=== PATIENT | male | born 2000 | race American Indian/Alaskan Native ===

== ENCOUNTER 2018-04-21 07:02 | Emergency (ER) | payer SELFPAY ==
[2018-04-21 07:21] VITALS: BMI 25.7
--- NOTE | 2018-04-21 07:24 | ED PDOC ---
HPI: Skin/Bite Injury Time Seen by Provider: 04/21/18 07:09 Chief Complaint (Provider): Allergic reaction History Per: Patient History/Exam Limitations: no limitations Onset/Duration Of Symptoms: Days (1 week) Current Symptoms Are (Timing): Still Present Additional Complaint(s): Pt. with hives and itching in different areas. It starts in 1 area and goes away after 1 hr. Then some other time starts in a different area and goes away. Took benadryl 2 days ago as it was on his face. It can occur any where on the body, extremities and face. Has no dyspnea, cough, trouble swallowing, weakness, dizziness. No facial swelling. Denies any new food, drinks, or new exposure. Past Medical History Reviewed: Nursing Documentation, Vital Signs - Medical History PMH: Atrial Fibrillation - Surgical History Surgical History: No Surg Hx - Family History Family History: States: Unknown Family Hx - Home Medications Home Medications: Ambulatory Orders Medication Instructions Recorded DiphenhydrAMINE [Benadryl] 25 mg PO TID PRN 5 Days cap 04/21/18 predniSONE [predniSONE Tab] 20 mg PO BID 5 Days tab 04/21/18 - Allergies Allergies/Adverse Reactions: Allergies Allergy/AdvReac Type Severity Reaction Status Date / Time Bleach (Sodium Hypochlorite) Allergy RASH Verified 04/21/18 07:22 Review of Systems ROS Statement: Except As Marked, All Systems Reviewed And Found Negative Skin: Positive for: Rash Physical Exam - Reviewed Nursing Documentation Reviewed: Yes Vital Signs Reviewed: Yes - Physical Exam Appears: Positive for: Non-toxic, No Acute Distress Head Exam: Positive for: ATRAUMATIC, NORMAL INSPECTION, NORMOCEPHALIC Skin: Positive for: Rash (b/l upper lateral back with blanching erythema in urticarial pattern; no fluctuance, induration, or tenderness) Eye Exam: Positive for: EOMI, Normal appearance, PERRL ENT: Positive for: Normal ENT Inspection Neck: Positive for: Normal, Painless ROM Cardiovascular/Chest: Positive for: Regular Rate, Rhythm. Negative for: Edema Respiratory: Positive for: CNT, Normal Breath Sounds Gastrointestinal/Abdominal: Positive for: Normal Exam, Soft. Negative for: Tenderness Back: Positive for: Normal Inspection. Negative for: L CVA Tenderness, R CVA Tenderness Extremity: Positive for: Normal ROM. Negative for: Tenderness, Pedal Edema Neurologic/Psych: Positive for: Alert, Oriented - Progress ED Course And Treament: 725: Pt. has had similar in the past when exposed to bleach. States no exposure to it. AAOx3. Pain free. Tolerated po. Disposition - Clinical Impression Clinical Impression: Hives - Patient ED Disposition Is Patient to be Admitted: No - Disposition Referrals: [facility] [Outside] - 04/22/18 Disposition: Routine/Home Disposition Time: 07:28 Condition: STABLE Additional Instructions: Return if not better in 3 days. Prescriptions: DiphenhydrAMINE [Benadryl] 25 mg PO TID PRN 5 Days cap PRN Reason: Itching / Pruritus predniSONE [predniSONE Tab] 20 mg PO BID 5 Days tab Instructions: Hives Forms: [facility] ED School/Work Excuse
[2018-04-21 07:26] VITALS: BP 116/60; PULSE 88; RESP 18; TEMP 98.4; O2SAT 98
== END 2018-04-21 08:08 | disposition home or self-care (01) ==
LOC: H.ER 07:02
DX: L50.9 Urticaria, unspecified (principal)

== ENCOUNTER 2018-04-22 20:58 | Emergency (ER) | payer OTHER ==
[2018-04-22 20:59] VITALS: BMI 25.7
[2018-04-22 21:06] VITALS: BP 124/65; PULSE 103; RESP 18; TEMP 98; O2SAT 100
--- NOTE | 2018-04-22 21:30 | ED PDOC ---
HPI: General Adult Time Seen by Provider: 04/22/18 21:08 Chief Complaint (Nursing): Body Fluid Exposure Chief Complaint (Provider): Saliva Exposure History Per: Patient History/Exam Limitations: no limitations Onset/Duration Of Symptoms: Mins (prior to arrival) Additional Complaint(s): 17 year old male presents to the ED for evaluation of saliva exposure. 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 Denies the saliva containing any blood. He reports that his employer required him to be evaluated for exposure, but has no complaints at present. Otherwise, (-) visual changes, (-) fever, (-) foreign body sensation. PMD: Norberto Guevara MD Past Medical History Reviewed: Historical Data, Nursing Documentation, Vital Signs Vital Signs: Last Vital Signs Temp 98.0 F 04/22/18 21:04 Pulse 103 H 04/22/18 21:04 Resp 18 04/22/18 21:04 BP 124/65 04/22/18 21:04 Pulse Ox 100 04/22/18 21:37 - Medical History PMH: Anemia (g6pd deficiency ), Atrial Fibrillation - Surgical History Surgical History: No Surg Hx - Family History Family History: States: Unknown Family Hx - Social History Current smoker - smoking cessation education provided: No Alcohol: None Drugs: Denies - Home Medications Home Medications: Ambulatory Orders Medication Instructions Recorded DiphenhydrAMINE [Benadryl] 25 mg PO TID PRN 5 Days cap 04/21/18 predniSONE [predniSONE Tab] 20 mg PO BID 5 Days tab 04/21/18 - Allergies Allergies/Adverse Reactions: Allergies Allergy/AdvReac Type Severity Reaction Status Date / Time Bleach (Sodium Hypochlorite) Allergy RASH Verified 04/22/18 21:03 Review of Systems ROS Statement: Except As Marked, All Systems Reviewed And Found Negative Constitutional: Negative for: Fever Eyes: Positive for: Other (saliva exposure to right eye; denies foriegn body sensation). Negative for: Vision Change Physical Exam - Reviewed Nursing Documentation Reviewed: Yes Vital Signs Reviewed: Yes - Physical Exam Comments: GENERAL APPEARANCE: Patient is awake, alert, oriented x 3, in no acute distress. Resting comfortably. SKIN: Warm, dry; (-) cyanosis. EYES: (-) conjunctival pallor or injection, (-) scleral icterus, (-) nystagmus ( -) periorbital tenderness or swelling (-) hyphema (-) chemosis (-) FB visualized ENMT: Mucous membranes moist. Airway patent: (-) stridor. NECK: Supple, FROM (-) tenderness, (-) stiffness, (-) lymphadenopathy. CHEST AND RESPIRATORY: (-) rhonchi, (-) rales, (-) wheezes, (-) pleural rub; breath sounds equal bilaterally. HEART AND CARDIOVASCULAR: (-) irregularity; (-) murmur, (-) gallop. NEURO AND PSYCH: Mental status as above. Cranial nerves grossly intact; strength symmetric. EOMI and painless. - ECG O2 Sat by Pulse Oximetry: 100 (RA) Pulse Ox Interpretation: Normal Medical Decision Making Medical Decision Making: Time: 2119 Impression: bodily fluid (saliva) exposure Plan: --Risk of exposure and disease transmission discussed with patient in depth. Patient declined to have labs drawn and does not wish to go through the post exposure prophylaxis. Advised to follow up with PMD with any new or worsening symptoms. Based on history, exam and diagnostic results, plan will be for outpatient follow up. Patient instructed to follow-up with pmd / referral provided / the clinic in 1- 2 days without fail. Return to the emergency room at any time for any new or worsening symptoms. Patient states he fully agrees with and understands discharge instructions. States that he agrees with the plan and disposition. Verbalized and repeated discharge instructions and plan. I have given the patient opportunity to ask any additional questions. Scribe Attestation: Documented by Melia Velasquez, acting as a scribe for Magdalena Owen PA-C. Provider Scribe Attestation: All medical record entries made by the Scribe were at my direction and personally dictated by me. I have reviewed the chart and agree that the record accurately reflects my personal performance of the history, physical exam, medical decision making, and the department course for this patient. I have also personally directed, reviewed, and agree with the discharge instructions and disposition. Disposition - Clinical Impression Clinical Impression: Exposure to blood or body fluid - Patient ED Disposition Is Patient to be Admitted: No Counseled Patient/Family Regarding: Diagnosis, Need For Followup - Disposition Disposition: Routine/Home Disposition Time: 21:25 Condition: STABLE Additional Instructions: FOLLOW UP WITH PMD IN 1-2 DAYS FOR FURTHER EVALUATION. RETURN TO ED WITH ANY NEW OR WORSENING SYMPTOMS. Instructions: Blood or Body Fluid Exposure Forms: [facility] (Jamaican) Print Language: MOZAMBICAN - POA Present On Arrival: None
== END 2018-04-22 21:51 | disposition home or self-care (01) ==
LOC: H.ER 20:58
DX: Z77.21 Contact with and (suspected) exposure to potentially hazardous body fluids (principal)

== ENCOUNTER 2018-11-04 21:28 | Emergency (ER) | payer SELFPAY ==
[2018-11-04 21:28] VITALS: BMI 25.7
[2018-11-04] MEDS ORDERED: Sodium Chloride 0.9% 1,000 ML IV STA (21:51)
--- NOTE | 2018-11-04 21:54 | ED PDOC ---
HPI:Nausea, Vomiting, Diarrhea Time Seen by Provider: 11/04/18 21:40 Chief Complaint (Nursing): Abdominal Pain Chief Complaint (Provider): N/V and diarrhea History Per: Patient Have you had recent travel within the past 21 days to any of the following countries: [place], [place], [place] or [place]?: No Context: Food Associated Symptoms: Nausea, Vomiting, Diarrhea Last Bowel Movement: Today Additional Complaint(s): 18 y/o Male with hx of Afib/SVT, and G6PD deficiency who presents with N/V and diarrhea. Patient states that he had Wendys last night at about 11pm and began having stomach pain several hours later. At about 9am he woke up and began having watery diarrhea, multiple bouts. He began vomiting at 12pm with first episode of emesis having some blood clots. Denies gurdeep hematemesis. He has been vomiting hourly since then and has been unable to even tolerate water without vomiting. He feels slightly lightheaded and has a HALL. Denies sore throat, palpitations, SOB, C/P, fever, chills or night sweats. Patient is no longer havi ng abdominal pain or nausea. Past Medical History Reviewed: Historical Data, Nursing Documentation, Vital Signs Vital Signs: Last Vital Signs Temp 99.7 F H 11/04/18 21:30 Pulse 107 H 11/04/18 21:30 Resp 20 11/04/18 21:30 BP 109/67 11/04/18 21:30 Pulse Ox 99 11/04/18 21:30 - Medical History PMH: Anemia (g6pd deficiency ), Atrial Fibrillation - Family History Family History: States: Unknown Family Hx - Home Medications Home Medications: Ambulatory Orders Medication Instructions Recorded DiphenhydrAMINE [Benadryl] 25 mg PO TID PRN 5 Days cap 04/21/18 predniSONE [predniSONE Tab] 20 mg PO BID 5 Days tab 04/21/18 Ondansetron ODT [Zofran ODT] 4 mg PO Q8 PRN 2 Days odt 11/05/18 - Allergies Allergies/Adverse Reactions: Allergies Allergy/AdvReac Type Severity Reaction Status Date / Time Bleach (Sodium Hypochlorite) Allergy RASH Verified 11/04/18 21:30 Review of Systems Constitutional: Negative for: Fever, Chills Respiratory: Negative for: Shortness of Breath Gastrointestinal: Positive for: Nausea, Vomiting, Abdominal Pain, Diarrhea Physical Exam - Reviewed Nursing Documentation Reviewed: Yes Vital Signs Reviewed: Yes - Physical Exam Appears: Positive for: Well Head Exam: Positive for: ATRAUMATIC Skin: Positive for: Normal Color Neck: Positive for: Normal Cardiovascular/Chest: Positive for: Regular Rate, Rhythm Respiratory: Positive for: Normal Breath Sounds Gastrointestinal/Abdominal: Positive for: Normal Exam. Negative for: Tenderness, Guarding, Rebound Lymphatic: Positive for: Normal Exam Neurologic/Psych: Positive for: Alert, Oriented - Laboratory Results Result Diagrams: 11/04/18 22:25 11/04/18 22:25 - ECG O2 Sat by Pulse Oximetry: 99 Medical Decision Making Medical Decision Making: CBC, CMP Normal Saline 1L IV bolus PO challenge 01:00am: re-evaluated, pt tolerated drinking liquids w/o any N/V. He has not had diarrhea since being in ED and feels fairly well. Denies abdominal pain. Stable for d/c home. Disposition - Clinical Impression Clinical Impression: Food poisoning - Patient ED Disposition Is Patient to be Admitted: No - Disposition Disposition: Routine/Home Disposition Time: 01:14 Condition: STABLE Additional Instructions: Stay hydrated. Return to ER if you are unable to keep liquids down or if you become very dizzy. Take Zofran as needed for severe nausea and vomiting. F/u with your primary care doctor as needed. Prescriptions: Ondansetron ODT [Zofran ODT] 4 mg PO Q8 PRN 2 Days odt PRN Reason: Nausea/Vomiting Instructions: Food Poisoning (DC) Forms: [employer] (Serbian) Print Language: BELARUSIAN
[2018-11-04 22:33] LABS: BASO % 0.1 % (0.0-2.0); EOS % 0.3 % (0.0-4.0); HEMOGLOBIN 15.2 g/dL (12.0-18.0); LYMPH # 0.7 K/uL (1.0-4.3); LYMPH % 6.8 % (20.0-40.0); MEAN CELL VOLUME 88.9 fl (80.0-94.0); MEAN CORPUSCULAR HEMOGLOBIN 29.8 pg (27.0-31.0); MEAN CORPUSCULAR HGB CONC 33.5 g/dL (33.0-37.0); MONO # 0.6 K/uL (0.0-0.8); MONO % 6.1 % (0.0-10.0); NEUT # 9.3 K/uL (1.8-7.0); NEUT % 86.7 % (50.0-75.0); PLATELET COUNT 228 K/uL (130-400); RBC 5.11 Mil/uL (4.40-5.90); RED CELL DISTRIBUTION WIDTH 12.4 % (11.5-14.5); WHITE BLOOD COUNT 10.7 K/uL (4.8-10.8)
[2018-11-04 22:43] LABS: ALB/GLOB RATIO 1.2 (1.0-2.1); ALBUMIN 4.9 g/dL (3.5-5.0); ALT/SGPT 51 U/L (21-72); AST/SGOT 39 U/L (17-59); BLOOD UREA NITROGEN 16 mg/dl (9-20); GFR NON-AFRICAN AMERICAN > 60
[2018-11-04 23:11] LABS: BANDS 2 % (0-2); HYPOCHROMIC SLIGHT; LYMPHOCYTE 10 % (20-50); MONOCYTE 8 % (0-10); NEUTROPHIL 80 % (42-75); PLATELET ESTIMATE NORMAL (NORMAL); TOTAL CELLS COUNTED 100
[2018-11-05 00:09] VITALS: BP 104/68; PULSE 86; RESP 18
[2018-11-05 00:18] VITALS: TEMP 99.1
[2018-11-05 01:14] VITALS: O2SAT 99
== END 2018-11-05 01:21 | disposition home or self-care (01) ==
LOC: H.ER 21:28
DX: T62.91XA Toxic effect of unspecified noxious substance eaten as food, accidental (unintentional), initial encounter (principal)
CPT/HCPCS: 80053; 85025; 96360; 99284; J7030

== ENCOUNTER 2019-02-04 19:02 | Emergency (ER) | payer SELFPAY ==
[2019-02-04 19:04] VITALS: RESP 18; O2SAT 99; BMI 32.3
[2019-02-04 19:12] VITALS: TEMP 99
[2019-02-04] MEDS ORDERED: Sodium Chloride 0.9% 1,000 ML IV STA (19:42)
--- NOTE | 2019-02-04 19:59 | ED PDOC ---
HPI: General Adult Time Seen by Provider: 02/04/19 19:15 Chief Complaint (Nursing): Dizziness/Lightheaded Chief Complaint (Provider): Dizziness/Lightheaded History Per: Patient History/Exam Limitations: no limitations Onset/Duration Of Symptoms: Days (today) Current Symptoms Are (Timing): Gone Now Additional Complaint(s): 18 year old male with a history of a fib and SVT presents to the ED with lightheadedness and palpitations onset this afternoon. Patient reports that around 3 this afternoon while at the computer he suddenly felt mildly lightheaded and out of it. He went outside to get some fresh air and felt a little better. 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 He noted his heart rate was 140 at the time. Patient also had his blood pressure checked and it was elevated with SBP. He also began having a headache, nausea, and mild retching which prompted ED visit for further evaluation. Patient states he felt some chest tightness but no chest pain and feels better at present. Patient was diagnosed with SVT when he was 16 but his insole rasper advised no mediations were necessary and that it would just be followed periodically. PMD: In [place] Past Medical History Reviewed: Historical Data, Nursing Documentation, Vital Signs Vital Signs: Last Vital Signs Temp 99 F 02/04/19 19:09 Pulse 81 02/04/19 19:09 Resp 18 02/04/19 19:09 BP 118/82 02/04/19 19:09 Pulse Ox 99 02/04/19 19:09 - Medical History PMH: Anemia (g6pd deficiency ), Atrial Fibrillation Other PMH: SVT - Surgical History Surgical History: No Surg Hx - Family History Family History: States: No Known Family Hx - Social History Current smoker - smoking cessation education provided: No Ex-Smoker (has not smoked in the last 12 months): No Drugs: Denies - Immunization History Hx Tetanus Toxoid Vaccination: No Hx Influenza Vaccination: No Hx Pneumococcal Vaccination: No - Home Medications Home Medications: Ambulatory Orders Medication Instructions Recorded DiphenhydrAMINE [Benadryl] 25 mg PO TID PRN 5 Days cap 04/21/18 predniSONE [predniSONE Tab] 20 mg PO BID 5 Days tab 04/21/18 Ondansetron ODT [Zofran ODT] 4 mg PO Q8 PRN 2 Days odt 11/05/18 - Allergies Allergies/Adverse Reactions: Allergies Allergy/AdvReac Type Severity Reaction Status Date / Time Bleach (Sodium Hypochlorite) Allergy RASH Verified 02/04/19 19:09 Review of Systems ROS Statement: Except As Marked, All Systems Reviewed And Found Negative Cardiovascular: Positive for: Palpitations, Light Headedness, Other (chest pressure) Neurological: Positive for: Headache Physical Exam - Reviewed Nursing Documentation Reviewed: Yes Vital Signs Reviewed: Yes - Physical Exam Appears: Positive for: Well, No Acute Distress Head Exam: Positive for: ATRAUMATIC, NORMOCEPHALIC Skin: Positive for: Warm, Dry Eye Exam: Positive for: EOMI, PERRL ENT: Negative for: Pharyngeal Erythema, Tonsillar Exudate Neck: Positive for: Painless ROM, Supple Cardiovascular/Chest: Positive for: Regular Rate, Rhythm. Negative for: Murmur Respiratory: Positive for: Normal Breath Sounds. Negative for: Respiratory Distress Gastrointestinal/Abdominal: Positive for: Soft. Negative for: Tenderness Back: Positive for: Normal Inspection. Negative for: Decreased ROM Extremity: Positive for: Normal ROM. Negative for: Deformity Lymphatic: Negative for: Adenopathy Neurological/Psych: Positive for: Awake, Alert. Negative for: Motor/Sensory Deficits - Laboratory Results Result Diagrams: 02/04/19 19:49 02/04/19 19:49 - ECG ECG Rhythm: Positive for: Sinus Rhythm (normal) Interpretation Of ECG: benign early repolarization Rate: 70 O2 Sat by Pulse Oximetry: 99 (RA) Pulse Ox Interpretation: Normal Medical Decision Making Medical Decision Making: Time: 1940 Impression: palpitations Differentials include but are not limited to: dehydration, electrolyte abnormalities, anemia, and transient arrhythmia Plan: --BNP --CMP --Magnesium --phosphorus --TSH --Troponin --U dip --CBC --D Dimer --CXR --NS --quality assurance monitor Labs and EKG and CXR unremarkable Advised rest and followup [facility]/PMD and cardiology ScribeAttestation: Documented byAnlaisa George, acting as a scribe for Marah Mccullough MD. Provider ScribeAttestation: All medical record entries made by the Scribe were at my direction and personally dictated by me. I have reviewed the chart and agree that the record accurately reflects my personal performance of the history, physical exam, medical decision making, and the department course for this patient. I have also personally directed, reviewed, and agree with the discharge instructions and disposition. Disposition - Clinical Impression Clinical Impression: Palpitations, Lightheadedness Counseled Patient/Family Regarding: Studies Performed, Diagnosis, Need For Followup - Disposition Referrals: [facility] [Outside] Christian Fraser MD [Staff Provider] - Disposition: Routine/Home Disposition Time: 21:13 Condition: STABLE Additional Instructions: FOLLOWUP WITH [employer] [facility] IN 1-2 DAYS FOR REEVALUATION FOLLOWUP WITH [facility] IN 1-2 WEEKS Instructions: Palpitations (DC) Forms: [facility] (Singaporean), [facility] ED School/Work Excuse
[2019-02-04 20:01] LABS: BASO % 0.4 % (0.0-2.0); EOS # 0.2 K/uL (0.0-0.7); EOS % 1.7 % (0.0-4.0); HEMOGLOBIN 14.2 g/dL (12.0-18.0); LYMPH # 3.3 K/uL (1.0-4.3); LYMPH % 31.5 % (20.0-40.0); MEAN CELL VOLUME 88.2 fl (80.0-94.0); MEAN CORPUSCULAR HEMOGLOBIN 30.1 pg (27.0-31.0); MEAN CORPUSCULAR HGB CONC 34.1 g/dL (33.0-37.0); MEAN PLATELET VOLUME 8.5 fl (7.2-11.7); MONO # 0.8 K/uL (0.0-0.8); MONO % 7.4 % (0.0-10.0); NEUT # 6.1 K/uL (1.8-7.0); NRBC % 0.2 % (0.0-0.0); RBC 4.73 Mil/uL (4.40-5.90); RED CELL DISTRIBUTION WIDTH 12.3 % (11.5-14.5); WHITE BLOOD COUNT 10.4 K/uL (4.8-10.8)
[2019-02-04 20:11] LABS: ALB/GLOB RATIO 1.3 (1.0-2.1); ALBUMIN 4.8 g/dL (3.5-5.0); ALT/SGPT 44 U/L (21-72); AST/SGOT 50 U/L (17-59); BLOOD UREA NITROGEN 16 mg/dl (9-20); CALCIUM 9.6 mg/dL (8.4-10.2); GFR NON-AFRICAN AMERICAN > 60
[2019-02-04 20:23] LABS: B-TYPE NATRIURETIC PEPTIDE 25.4 pg/ml (0-450)
[2019-02-04 21:26] VITALS: BP 136/67; PULSE 84
--- NOTE | 2019-02-05 10:10 | RAD ---
Date of service: 02/04/2019 HISTORY: Chest pressure lightheadedness COMPARISON: No prior. TECHNIQUE: Chest PA and lateral views FINDINGS: LUNGS: No active pulmonary disease. PLEURA: No significant pleural effusion identified. No pneumothorax apparent. CARDIOVASCULAR: No aortic atherosclerotic calcification present. Normal cardiac size. No pulmonary vascular congestion. OSSEOUS STRUCTURES: No significant abnormalities. VISUALIZED UPPER ABDOMEN: Normal. OTHER FINDINGS: None. IMPRESSION: No active disease.
== END 2019-02-04 21:26 | disposition home or self-care (01) ==
LOC: H.ER 19:02
DX: R00.2 Palpitations (principal); R42 Dizziness and giddiness; Z87.891 Personal history of nicotine dependence
CPT/HCPCS: 71046; 80053; 83735; 83880; 84100; 84443; 84484; 85025; 85378; 96360; 99284; J7030